=== PATIENT | male | born 1980 | race Two or more races ===

== ENCOUNTER 2017-07-27 09:00 | Emergency (ER) | payer OTHER ==
[~2017-07-27] VITALS: Ht 170.2 cm; Wt 68.0 kg
[2017-07-27 09:07] VITALS: BP 123/72
== END 2017-07-27 10:54 | disposition home or self-care (01) ==
LOC: ED 09:00
DX: S82.301A Unspecified fracture of lower end of right tibia, initial encounter for closed fracture (principal); W11.XXXA Fall on and from ladder, initial encounter; Y93.89 Activity, other specified; Y99.8 Other external cause status; Y92.89 Other specified places as the place of occurrence of the external cause
CPT/HCPCS: Q0092